=== PATIENT | male | born 1985 | race Caucasian/White ===

== ENCOUNTER 2018-11-24 15:40 | Emergency (ER) | payer OTHER ==
[~2018-11-24] VITALS: Ht 177.8 cm; Wt 73.0 kg
[~2018-11-24 15:40] MED LIST: ALBU90OI INH; Bactrim Ds Tab1 EACH PO; Cephalexin500 MG PO; GUAI600T33 PO; IBUP600 PO; IBUP800 PO; LEVO750 PO; LORA.5 PO; Monodox100 MG PO; Norco 5-325 Ta1 EACH PO; PRED10 PO; Prednisone20 MG PO; SPACE CHAMBER1 EACH MC; Ventolin/Prove6.7 GM INH; Zithromax250 MG PO
[2018-11-24] MEDS ORDERED: PRED20 PO (17:19)
[2018-11-24] MEDS ORDERED: Flonase 0.05% N16 GM (17:19)
[2018-11-24] MEDS ORDERED: Cheratussin AC118 ML PO (17:19)
[2018-11-24] MEDS ORDERED: ALBU90OI61 INH (17:19)
[2018-11-24] MEDS ORDERED: Zithromax250 MG PO (17:19)
[2018-11-24] MEDS ORDERED: Sudogest30 MG PO (17:19)
== END 2018-11-24 17:28 | disposition home or self-care (01) ==
LOC: ER 15:40
DX: R05 Cough (principal); J45.909 Unspecified asthma, uncomplicated; R01.1 Cardiac murmur, unspecified; Z79.52 Long term (current) use of systemic steroids; Z87.891 Personal history of nicotine dependence
CPT/HCPCS: 71046; 94640; 99283-25; J7512

== ENCOUNTER 2019-08-23 13:20 | Emergency (ER) | payer OTHER ==
[~2019-08-23] VITALS: Ht 177.8 cm; Wt 74.8 kg
[~2019-08-23 13:20] MED LIST changes: +ALBU90OI61 INH; +Cheratussin AC118 ML PO; +Flonase 0.05% N16 GM; +PRED20 PO; +Sudogest30 MG PO
[2019-08-23 14:04] LABS: BASOPHILS ABSOLUTE AUTO 0.09 K/mm3 (0.00-0.23); BASOPHILS PERCENT AUTO 1 % (0-2); EOSINOPHILS ABSOLUTE AUTO 0.32 K/mm3 (0.00-0.68); EOSINOPHILS PERCENT AUTO 4 % (0-6); Hematocrit 46.3 % (37.0-53.0); Hemoglobin 15.7 g/dL (13.5-17.5); IMMATURE GRAN ABSOLUTE AUTO 0.02 K/mm3 (0.00-0.10); IMMATURE GRAN PERCENT AUTO 0 % (0-1); LYMPHOCYTES ABSOLUTE AUTO 2.34 K/mm3 (0.84-5.20); LYMPHOCYTES PERCENT AUTO 27 % (21-46); MONOCYTES ABSOLUTE AUTO 0.83 K/mm3 (0.16-1.47); MONOCYTES PERCENT AUTO 9 % (4-13); Mean Corpuscular HGB 29.4 pg (26.0-34.0); Mean Corpuscular HGB Conc 33.9 g/dL (31.5-36.5); Mean Corpuscular Volume 87 fL (80-100); Mean Platelet Volume 9.5 fL (9.1-12.4); NEUTROPHILS ABSOLUTE AUTO 5.19 K/mm3 (1.96-9.15); NEUTROPHILS PERCENT AUTO 59 % (41-73); Platelet Count 333 K/mm3 (150-400); RDW Coefficient Variation 12.2 % (11.7-14.2); RDW Standard Deviation 38.9 fL (35.1-46.3); Red Blood Cell Count 5.34 M/mm3 (4.30-5.90); White Blood Cell Count 8.79 K/mm3 (4.00-11.30)
[2019-08-23 14:44] LABS: Alanine Aminotransfer (ALT/SGP 22 U/L (12-78); Albumin, Blood 4.3 g/dL (3.4-5.0); Albumin/Globulin Ratio 1.1 (0.8-1.8); Alk Phos 72 U/L (50-136); Anion Gap 6 mmol/L (6-16); Aspartate Aminotrans (AST/SGOT 19 U/L (12-37); Bilirubin, Total 0.3 mg/dL (0.1-1.0); Blood Urea Nitrogen 9 mg/dL (8-24); Bun/Creatinine Ratio 11.7 (12.0-20.0); CO2, Blood 25 mmol/L (21-32); Chloride, Blood 106 mmol/L (98-108); Creatinine, Blood 0.77 mg/dL (0.60-1.20); Globulin, Blood 3.8 g/dL (2.2-4.0); Glomerular Filtration Rate >60 (60-); Glucose, Blood 98 mg/dL (70-99); Potassium, Blood 3.5 mmol/L (3.5-5.5); Sodium, Blood 137 mmol/L (136-145); Total Protein, Blood 8.1 g/dL (6.4-8.2); Troponin I <0.015 ng/mL (0.000-0.040)
[2019-08-23] MEDS ORDERED: Esgic Tablet1 EACH PO (15:26)
== END 2019-08-23 15:51 | disposition home or self-care (01) ==
LOC: ER 13:20
PROVIDERS: Physician Assistant
DX: R51 Headache (principal); R56.9 Unspecified convulsions; J45.909 Unspecified asthma, uncomplicated; Z79.51 Long term (current) use of inhaled steroids; Z79.899 Other long term (current) drug therapy; Z87.891 Personal history of nicotine dependence
CPT/HCPCS: 36415; 71046; 80053; 84484; 85025; 93005; 93010; 96374; 96375; 99284-25; J1200; J1885; J2765